=== PATIENT | male | born 1995 | race Caucasian/White ===

== ENCOUNTER 2018-06-05 12:08 | Outpatient (CLI) | payer OTHER ==
--- NOTE | 2018-06-05 15:57 | MRI Report ---
Reason: PAIN IN LEFT SHOULDER Procedure Date: 06/05/2018 Accession Number: [id number] / [id number] Procedure: MRI - Arthrogram Shoulder LT CPT Code: FULL RESULT: EXAM: LEFT SHOULDER MRI ARTHROGRAM WITH CONTRAST EXAM DATE: 06/05/2018 12:58 PM. CLINICAL HISTORY: PAIN IN LEFT SHOULDER. COMPARISON: None. TECHNIQUE: Multiplanar, multisequence T1-weighted and fluid-sensitive sequences of the shoulder after an arthrographic injection of dilute gadolinium, dictated under a separate exam. Other: None. FINDINGS: Rotator cuff: Minimal patchy edema within the distal supraspinatus and infraspinatus. No rotator cuff tear identified. No rotator cuff muscle atrophy or fatty replacement. Long head biceps tendon: Intact demonstrating normal course, signal and morphology. Labrum: Intact. No tear is identified. Bones and articular surfaces: No significant articular cartilage defects are seen. Acromioclavicular joint: Normal appearance. Type II acromion. IMPRESSION: 1. Minimal supraspinatus and infraspinatus tendinosis. [facility] MUSCULOSKELETAL RADIOLOGY SECTION
--- NOTE | 2018-06-05 16:56 | XRAY Report ---
Reason: PAIN IN LEFT SHOULDER Procedure Date: 06/05/2018 Accession Number: [id number] / [id number] Procedure: FL - Arthrogram Needle Placement CPT Code: FULL RESULT: EXAM: LEFT SHOULDER ARTHROGRAPHIC INJECTION WITH FLUOROSCOPIC GUIDANCE EXAM DATE: 06/05/2018 01:14 PM. CLINICAL HISTORY: PAIN IN LEFT SHOULDER. COMPARISON: None. TECHNIQUE: The risks, benefits, and alternatives of the procedure were discussed with the patient. All questions were answered. Written and verbal consent were obtained. The left glenohumeral joint was marked under fluoroscopy and prepped and draped in a sterile manner. Local anesthesia was performed with 1% lidocaine. A 22-gauge needle was then inserted into the glenohumeral joint. 10 mL of a solution containing 25% 1% lidocaine, 25% iodinated contrast, and a 1:200 dilution of gadolinium contrast in sterile saline was then injected. The needle was removed without immediate complication. Other: None. Fluoroscopy Time: 20 seconds. Number of Images: 2. FINDINGS: Bones and joints: No fracture or subluxation. Injection: Fluoroscopic images demonstrate needle placement and contrast in the left glenohumeral joint. No contrast extravasation outside of the glenohumeral joint. IMPRESSION: Successful fluoroscopically guided arthrographic injection of the left shoulder. [facility]
== END 2018-06-05 12:09 | disposition home or self-care (01) ==
LOC: DI 12:08
DX: M75.92 Shoulder lesion, unspecified, left shoulder (principal)
CPT/HCPCS: 23350; 73222; 77002; Q9961

== ENCOUNTER 2019-01-14 10:29 | Emergency (ER) | payer OTHER ==
[2019-01-14 10:40] VITALS: BP 134/68
--- NOTE | 2019-01-14 12:32 | ED Physician Documentation ---
PD HPI NECK PAIN - Stated complaint Stated Complaint: NECK PX/DEL CASTILLO - Chief complaint Chief Complaint: Ext Problem - History obtained from History obtained from: Patient - History of Present Illness Timing - onset: How many months ago (2) Timing - duration: Months (2) Timing - details: Gradual onset Location: Right Quality: Pain Associated symptoms: No: Weakness, Numbness Improves with: Rest Worsened by: Other (Activity and lifting) Contributing factors: No: Trauma Recently seen: Not recently seen - Additional information Additional information: This is a 23-year-old who is in the [employer] and does a lot of heavy lifting presents with complaints of neck pain that is "pretty bad" and is been there for couple months. Is been increasing over the last month to the point that he cannot participate in the physical activities at work even doing push-ups he cannot complete because of the pain. [place] said he just could not wait that long anymore. Is been icing it heating it and doing stretches. He is noted that it is worse with activity. He is been taking 3 Advil up to 2 times a day but not on a consistent basis. 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 Pain is limiting his activity. He complains of tingling a ll the way down the spine but no numbness tingling or pain into the upper or lower extremities. No prior back injury. He does not take any prescription medications. Review of Systems Constitutional: denies: Fever Skin: denies: Rash Musculoskeletal: reports: Neck pain Neurologic: denies: Focal weakness, Numbness PD PAST MEDICAL HISTORY - Present Medications Home Medications: Ambulatory Orders Medication Instructions Recorded Confirmed Cyclobenzaprine [Flexeril] 10 mg PO TID PRN #10 tablet 01/14/19 - Allergies Allergies/Adverse Reactions: Allergies Allergy/AdvReac Type Severity Reaction Status Date / Time Penicillins Allergy Hives Verified 01/14/19 10:40 PD ED PE NORMAL - Vitals Vital signs reviewed: Yes - General General: Alert and oriented X 3, No acute distress, Well developed/nourished - HEENT HEENT: Atraumatic, PERRL - Neck Neck: Supple, no meningeal sign, No adenopathy, Thyroid normal, No bruit, Other (He does have some tenderness with palpation in the trapezius and levator scapula muscles.) - Cardiac Cardiac: RRR, No murmur, Strong equal pulses - Extremities Extremities: No deformity, No tenderness to palpate, Normal ROM s pain, Other (Free range of motion about the shoulders.) - Neuro Neuro: Alert and oriented X 3, 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 Sensation is intact over the deltoid forearm and hand.) - Psych Psych: Normal mood, Normal affect Results - Vitals Vitals: Vital Signs - 24 hr 01/14/19 10:37 Temperature 36.6 C Heart Rate 63 Respiratory 15 Rate Blood Pressure 134/68 H O2 Saturation 97 Oxygen O2 Source Room air PD MEDICAL DECISION MAKING - ED course Complexity details: d/w patient, d/w family ED course: 23-year-old with job involving heavy lifting who is having some right-sided neck pain and tenderness without neurological deficits and no vascular bruits. He is encouraged to use ibuprofen, consider massage. Flexeril at night to help him sleep and he is placed on some restrictions. He should follow-up as scheduled on January 28. Departure - Departure Disposition: Home, Self Care Clinical Impression: Neck pain Condition: Good Instructions: ED Neck Pain No Trauma Follow-Up: PAULO Colladoalexus Amanda [Provider Group] Prescriptions: Cyclobenzaprine [Flexeril] 10 mg PO TID PRN #10 tablet PRN Reason: Spasms Comments: Take ibuprofen 4 tablets every 8 hours [id number] with food. May continue to ice the neck and massage therapy may actually be beneficial at helping to relieve some of the spasm. Flexeril can be used at night but he should not take it during the day and drive or operate machinery. Try to avoid lifting or participating in upper body physical activity for the next 3 to 4 days and [place] Forms: Activity restrictions
== END 2019-01-14 12:39 | disposition home or self-care (01) ==
LOC: ED 10:29
DX: M54.2 Cervicalgia (principal)
CPT/HCPCS: 99282; 99283

== ENCOUNTER 2020-02-01 02:26 | Emergency (ER) | payer OTHER ==
[2020-02-01 03:06] LABS: BASOPHILS # (AUTO) 0.1 10^3/uL (0.0-0.1); BASOPHILS % (AUTO) 0.6 %; EOSINOPHILS # (AUTO) 0.2 10^3/uL (0.0-0.7); EOSINOPHILS % (AUTO) 1.5 %; HGB - HEMOGLOBIN 13.7 g/dL (14.0-18.0); LYMPHOCYTES # (AUTO) 3.3 10^3/uL (1.5-3.5); LYMPHOCYTES % (AUTO) 32.3 %; MEAN CORPUSCULAR HGB CONC 33.2 g/dL (32.0-36.0); MEAN CORPUSCULAR VOLUME 87.5 fL (80.0-94.0); MEAN PLATELET VOLUME 11.2 fL (7.4-11.4); MONOCYTES # (AUTO) 1.1 10^3/uL (0.0-1.0); MONOCYTES % (AUTO) 10.8 %; NEUTROPHILS # (AUTO) 5.6 10^3/uL (1.5-6.6); NEUTROPHILS % (AUTO) 54.2 %; PLT - PLATELET COUNT 231 10^3/uL (130-450); RED BLOOD COUNT 4.72 10^6/uL (4.70-6.10); RED CELL DISTRIBUTION WIDTH 12.2 % (12.0-15.0); WHITE BLOOD COUNT 10.3 x10^3/uL (4.8-10.8)
--- NOTE | 2020-02-01 03:09 | ED Physician Documentation ---
PD HPI ABD PAIN - Stated complaint Stated Complaint: ABD PX - Chief complaint Chief Complaint: Abd Pain - History obtained from History obtained from: Patient - History of Present Illness Timing - onset: Enter time (02:00), Today Timing - details: Abrupt onset Pain level now: 1 Quality: Pain Location: Suprapubic Radiation: Other (no radiation) Improved by: Laying still Worsened by: Moving (movement involving abdominal muscles (such as sitting up)) Associated symptoms: No: Fever, Nausea, Vomiting, Diarrhea, Constipation Similar symptoms before: Has not had sx before Recently seen: Not recently seen - Additional information Additional information: c/o sudden onset abdominal pain, suprapubic region, approximately 2 AM this morning when at home at rest; onset coincided with coughing. He has had intermittent pain since the onset, exacerbated with movement involving abdominal wall muscles such as sitting up. He also notes mild burning dysuria with urination (at end of urination). Review of Systems Constitutional: denies: Fever, Chills, Sweats Cardiac: reports: Reviewed and negative Respiratory: reports: Reviewed and negative GI: reports: Abdominal Pain. denies: Abdominal Swelling, Nausea, Vomiting, Constipation, Diarrhea : reports: Dysuria. denies: Frequency, Hematuria Musculoskeletal: denies: Back pain PD PAST MEDICAL HISTORY - Past Medical History Past Medical History: No - Past Surgical History Past Surgical History: Yes General: Gastric surgery (fundoplication) - Present Medications Home Medications: Ambulatory Orders Medication Instructions Recorded Confirmed Cyclobenzaprine [Flexeril] 10 mg PO TID PRN #10 tablet 01/14/19 - Allergies Allergies/Adverse Reactions: Allergies Allergy/AdvReac Type Severity Reaction Status Date / Time Penicillins Allergy Hives Verified 02/01/20 02:48 - Living Situation Living Arrangement: reports: At home PD ED PE NORMAL - Vitals Vital signs reviewed: Yes - General General: Alert and oriented X 3, No acute distress, Well developed/nourished - Cardiac Cardiac: RRR, No murmur - Respiratory Respiratory: No respiratory distress, Clear bilaterally - Abdomen Abdomen: Normal bowel sounds, Soft, Non tender, Non distended - Back Back: No CVA TTP - Derm Derm: Normal color, Warm and dry Results - Vitals Vitals: Vital Signs - 24 hr 02/01/20 02/01/20 02/01/20 02:45 04:30 05:15 Temperature 36.4 C L 36.1 C L 36.6 C Heart Rate 98 63 60 Respiratory 16 14 16 Rate Blood Pressure 116/65 151/45 H 141/61 H O2 Saturation 98 100 100 Oxygen O2 Source Room air - Labs Labs: Laboratory Tests 02/01/20 02/01/20 02/01/20 03:02 03:02 03:13 WBC 10.3 RBC 4.72 Hgb 13.7 L Hct 41.3 L MCV 87.5 MCH 29.0 MCHC 33.2 RDW 12.2 Plt Count 231 MPV 11.2 Neut # (Auto) 5.6 Lymph # (Auto) 3.3 Hand # (Auto) 1.1 H Eos # (Auto) 0.2 Baso # (Auto) 0.1 Absolute Nucleated RBC 0.00 Nucleated RBC % 0.0 Sodium 138 Potassium 3.8 Chloride 104 Carbon Dioxide 24 Anion Gap 10.0 BUN 14 Creatinine 0.9 Estimated GFR (MDRD) 103 Glucose 97 Calcium 9.3 Total Bilirubin 0.9 AST 31 ALT 60 Alkaline Phosphatase 85 Total Protein 7.0 Albumin 4.5 Globulin 2.5 Albumin/Globulin Ratio 1.8 Lipase 24 Urine Color YELLOW Urine Clarity CLEAR Urine pH 5.0 Ur Specific [place] >=1.030 H Urine Protein NEGATIVE Urine Glucose (UA) NEGATIVE Urine Ketones NEGATIVE Urine Occult Blood NEGATIVE Urine Nitrite NEGATIVE Urine Bilirubin NEGATIVE Urine Urobilinogen 0.2 (NORMAL) Ur Leukocyte Esterase NEGATIVE Ur Microscopic Review NOT INDICATED Urine Culture Comments NOT INDICATED - Rads (name of study) CT A/P w/ IV contrast Radiology: Prelim report reviewed, See rad report PD MEDICAL DECISION MAKING - ED course Complexity details: reviewed results, re-evaluated patient, considered differential, d/w patient ED course: Patient is in NAD during ED stay. CT results d/w Dr. Lynn (economic analysis director surgery); Dr. Lynn recommends d/c and outpatient f/u provided he is not having significant symptoms such as ongoing pain or n/v, and no evidence of obstruction on CT. The intussusception is felt to be an incidental finding. Departure - Departure Disposition: 01 Home, Self Care Clinical Impression: Intussusception Condition: Good Instructions: ED Abdominal Pain Unkn Cause Follow-Up: Cordell Lynn MD [Provider Admit Priv/Credential] - Discharge Date/Time: 02/01/20 05:17
[2020-02-01 03:24] LABS: ALBUMIN 4.5 g/dL (3.2-5.5); ALBUMIN/GLOBULIN RATIO 1.8 (1.0-2.2); BILIRUBIN,TOTAL 0.9 mg/dL (0.2-1.0); CALCIUM 9.3 mg/dL (8.5-10.3); CREATININE 0.9 mg/dL (0.6-1.2)
[2020-02-01 03:25] LABS: BILIRUBIN,URINE NEGATIVE (NEGATIVE); GLUCOSE, URINE (UA) NEGATIVE (NEGATIVE); KETONES,URINE (UA) NEGATIVE (NEGATIVE); LEUKOCYTE ESTERASE, URINE NEGATIVE (NEGATIVE); NITRITE,URINE NEGATIVE (NEGATIVE); OCCULT BLOOD,URINE NEGATIVE (NEGATIVE); PROTEIN,URINE NEGATIVE (NEGATIVE); UROBILINOGEN,URINE 0.2 (NORMAL) E.U./dL (NORMAL)
[2020-02-01 03:26] LABS: CLARITY,URINE CLEAR (CLEAR)
[2020-02-01] MEDS ORDERED: IOVERSOL 320 100 ML VIAL IVP ONE ×2 (03:53→04:18)
[2020-02-01 05:30] VITALS: BP 141/61
--- NOTE | 2020-02-01 07:42 | CT Report ---
PROCEDURE: Abdomen/Pelvis W INDICATIONS: abdominal pain CONTRAST: IV CONTRAST: Optiray 320 ml: 100 PO CONTRAST: *NO PO CONTRAST TECHNIQUE: After the administration of weight appropriate dose of intravenous contrast, 5 mm thick sections acqu ired from the diaphragms to the symphysis. 5 mm thick coronal and sagittal reformats were acquired. For radiation dose reduction, the following was used: automated exposure control, adjustment of mA and/or kV according to patient size. COMPARISON: None. FINDINGS: Image quality: Excellent. ABDOMEN: Lung bases: Lung bases demonstrate minimal bibasilar atelectasis. Heart size is normal. Solid organs: Liver and spleen are normal in size and enhancement. Minimal diffuse hepatic steatosis . Gallbladder is unremarkable. Biliary system is non dilated. Pancreas enhances normally. No adren al nodules. Kidneys demonstrate normal size and enhancement, without hydronephrosis. Peritoneum and bowel: Bowel loops demonstrate normal wall thickness and caliber. There is a short se gment of small bowel intussusception seen on axial image 45, series 3 and coronal image 25, series 6. No surrounding inflammatory changes or adjacent mass lesion/adenopathy. No free fluid or air. Norm al appendix. Nodes and vessels: Numerous scattered mesenteric lymph nodes are more notable for number rather than size and likely reactive in etiology. No retroperitoneal or mesenteric adenopathy by size criteria. Aorta and inferior vena cava are normal in size. Miscellaneous: Small fat-containing umbilical hernia without acute inflammation. PELVIS: Genitourinary: Bladder wall thickness is normal. Miscellaneous: No inguinal hernias or adenopathy. Bones: No suspicious bony lesions. No vertebral body compression fractures. IMPRESSION: 1. Short segment of small bowel intussusception within the left midabdomen without evidence for bowel obstruction, mass lesion, or adenopathy. This may be transient in etiology. Recommend continued clin ical surveillance with follow-up imaging as needed. 2. Mild hepatic steatosis. 3. Scattered mesenteric lymph nodes more notable for number than size, likely reactive in etiology. No significant discrepancy with initial interpretation by overnight radiologist. Reviewed by: Tomy Johnson MD on 02/01/2020 7:41 AM PDT Approved by: Tomy Johnson MD on 02/01/2020 7:41 AM PDT Station ID: [id number]
== END 2020-02-01 05:17 | disposition home or self-care (01) ==
LOC: ED 02:26
DX: K56.1 Intussusception (principal)
CPT/HCPCS: 36415; 74177; 80053; 81003; 83690; 85025; 99284; Q9967; 81001; 87086

== ENCOUNTER 2020-03-16 10:17 | Outpatient (CLI) | payer OTHER ==
--- NOTE | 2020-03-16 11:47 | MRI Report ---
PROCEDURE: Knee RT W/O INDICATIONS: RT KNEE PAIN TECHNIQUE: Noncontrast sagittal PD fast spin echo and T2 fast spin echo with fat saturation, sagittal 3-D spoile d GE with fat saturation; coronal T1 spin echo and PD fast spin echo with fat saturation, and axial P D fast spin echo with fat saturation through the knee. COMPARISON: None. FINDINGS: Image quality: Excellent. Menisci: Increased signal is seen in the body of the medial meniscus without definite extension to a rticular surface, compatible with mild intrasubstance degeneration. The lateral meniscus is intact. T here is no meniscal extrusion. Cruciate ligaments: The anterior and posterior cruciate ligaments appear intact. Medial structures: The medial collateral ligament appears intact. The semimembranosus tendon insert ions appear intact. Visualized portions of the pes anserinus tendons appear normal. Lateral structures: The lateral collateral ligament, long and short heads of the biceps femoris tend on appear intact. The popliteus tendon appears intact. Iliotibial band appears normal. Anterior structures: There is mild tendinosis of the proximal patellar tendon. The distal quadriceps tendon is intact. No femoral trochlear dysplasia or ventral trochlear prominence. No edema in the in frapatellar fat pad. Bones and cartilage: No bone marrow contusion or acute fracture. The cartilage of the medial and la teral femorotibial compartments, as well as the patellofemoral compartment, appears normal in thickne ss. Joint space and soft tissues: There is a physiologic amount of joint fluid. There is a trace medial popliteal cyst. A small amount of nonspecific subcutaneous prepatellar edema is present. IMPRESSION: 1. Mild intrasubstance degeneration in the body of the medial meniscus without a discrete meniscal t ear. The lateral meniscus is intact. 2. Intact cruciate and collateral ligaments. No acute trabecular bone injury. 3. Mild proximal patellar tendinosis. Reviewed by: Archie Gonzalez MD on 03/16/2020 11:45 AM PST Approved by: Archie Gonzalez MD on 03/16/2020 11:45 AM PST Station ID: [id number]
== END 2020-03-16 10:18 | disposition home or self-care (01) ==
LOC: DI 10:17
PROVIDERS: ATTEND Student in an Organized Health Care Education/Training Program
DX: M23.331 Other meniscus derangements, other medial meniscus, right knee (principal); M67.863 Other specified disorders of tendon, right knee

== ENCOUNTER 2020-05-27 14:20 | Outpatient (CLI) | payer OTHER ==
--- NOTE | 2020-05-27 15:55 | MRI Report ---
PROCEDURE: Cervical Spine W/O INDICATIONS: CERVICALGIA TECHNIQUE: Noncontrast sagittal T1 spin echo and T2 fast spin echo, sagittal STIR, foraminal oblique sagittal T2 fast spin echo, and axial gradient echo or T2 fast spin echo through the cervical spine. COMPARISON: None. FINDINGS: Image quality: Excellent. Alignment and Curvature: There is normal bony alignment. Bone Marrow: Marrow demonstrates normal overall signal. Spinal Cord: Visualized spinal cord has normal size and signal. No cerebellar tonsillar herniation. Paraspinous Soft Tissues: No paravertebral masses. Prevertebral soft tissues are normal in thicknes s. C2-C3: Normal in appearance. C3-C4: Normal in appearance. C4-C5: Normal in appearance. C5-C6: Normal in appearance. C6-C7: Normal in appearance. C7-T1: Normal in appearance. IMPRESSION: Unremarkable examination. No cord signal abnormality, spinal canal stenosis, neural foraminal stenosi s, significant degenerative changes, or other finding to explain neck pain. Reviewed by: Jarvis Lujan MD on 05/27/2020 3:54 PM PST Approved by: Jarvis Lujan MD on 05/27/2020 3:54 PM PST Station ID: [id number]
== END 2020-05-27 14:21 | disposition home or self-care (01) ==
LOC: DI 14:20
PROVIDERS: ATTEND Student in an Organized Health Care Education/Training Program
DX: M54.2 Cervicalgia (principal)

== ENCOUNTER 2020-08-11 09:37 | Outpatient (CLI) | payer OTHER ==
--- NOTE | 2020-08-11 10:43 | SLEEP CARE CONSULTATION ---
Information from patient questionnaire entered by Ana Costa. I have reviewed and concur with the information entered by Ana Costa. This document represents the service I personally performed and the decisions made by me, Vanessa Cruz ARNP. History of Present Illness Service Date and Time: 08/11/2020 0937 Reason for Visit: New patient Chief Complaint: reports: Unrefreshed sleep, Snoring, Excessive daytime sleepiness, Observed pauses in breathing, Other (sleep walking, kicking/swinging arms) Date of Onset: 2016 Usual bedtime: 11:30 PM Time it takes to fall asleep: 30 min - 1 hr Snores at night: Yes Observed to quit breathing while asleep: Yes Sleeps alone due to snoring: No Number of times waking at night: 1-3 times a night Reasons for waking at night: reports: Gasping for air, Other (unknown reason) Toss, Turn, or Twitch while sleeping: Yes Recalls having dreams: Yes Usually gets out of bed at: 5:30 AM Feels refreshed in the morning: No Morning headache: Yes (Varies depending how bad it is; 5 days a week and they last all day) Sleepy or fatigued during the day: Yes Ever fallen asleep while driving: Yes (drowsy driving; no accidents) Takes day naps: No Dreams during day naps: Yes Prior sleep studies: No Additional HPI information: I had the pleasure of seeing JACQUELIN PARKINSON today regarding the possibility of him having a sleep disorder. His current complaints are observed pauses in breathing and unrefreshed sleep. He will sometimes wake up in kitchen or kicking/swinging his arms. He has a new baby in the home and his sometimes feeds the baby in the bed at night. He is concerned that he might hit them in his sleep. His has told him that he snores but can still sleep in same room and has noted pauses in breathing lasting up to 6 seconds. He states it varies on how he feels in the morning but he can sleep for 8 hours and not wake up feeling rested. 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 Patient is and lives in [place]. Have you smoked in the past 12 months: No (may have had 1-2 cigarette in last year) Cigarettes per day (20/pack): 4 Years of smokin Smoking Pack Years: 1.4 Alcohol use: No Caffeine use: Yes Caffeine amount and frequency: 1-2 glasses, 1 in the morning, 1 for dinner Family History Family history of sleep disordered breathing: Yes Family Hx Sleep Apnea: Father: Snoring Allergies and Home Medications Drug allergies reviewed: Yes (penicillins) Home medication list reviewed: Yes Allergy and home medication list: Ibuprofen 600 mg daily, prn for headaches Review of Systems Gastrointestinal: reports: diarrhea Neurological: reports: headaches Ear/Nose/Throat: reports: tonsillectomy, wisdom teeth removed Endocrine: reports: sluggishness (tired) Musculoskeletal: reports: joint pain (stiffness), neck pain Physical Exam Blood Pressure: 124/77 Cuff size: wrist Heart Rate: 72 O2 Saturation: 99 Height: 5 ft 7 in Weight: 193 lb Body Mass Index: 30.2 BMI Classification: Obese Nostrils: patent to airflow Mouth and throat: narrow oropharynx Soft palate: long Hard palate: arched Uvula visualization: 50% Mallampati Class II Tongue: enlarged in size with teeth andersen on lateral edges Tonsils: absent bilaterally Chin and jaw: normal size and position Neck: normal w/o lymphadenopathy or thyromegaly Heart: regular rate and rhythm Lungs: clear bilaterally Impression and Plan 1. Suspected Obstructive Sleep Apnea-Hypopnea Syndrome, as suggested by a history of loud and irregular snoring, observed cessation of breath while asleep, gasping or choking in sleep, morning headache, unrefreshed sleep, cognitive impairment, and excessive daytime sleepiness. Narrow oropharynx and obesity are common predisposing factors for obstructive sleep apnea-hypopnea syndrome. I recommend proceeding to polysomnography to confirm the diagnosis and to assess severity. If the patient has significant sleep disordered breathing, a manual CPAP titration study will also be performed to find the optimal treatment pressure. I informed the patient of what the sleep studies involve and after some discussion, obtained agreement to proceed. The pathophysiology of obstruct alejandro sleep apnea-hypopnea syndrome was discussed with the patient and health risks of cardiovascular and cerebrovascular disease if not treated. 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 Patient agreed to plan. * Schedule polysomnography +- manual CPAP titration study and return in 1-2 weeks after the study to discuss result and initiate therapy. * Avoid long distance driving or driving when feeling sleepy. * Avoid alcohol, sedative and muscle relaxant around bedtime. * Attempt to lose weight. * Review instructions provided by trained office staff on how to prepare for the sleep study. * Return for follow-up after sleep study completed. Counseling Topics: Weight loss health impact Visit Type: In Office Time Spent with Patient (minutes): 30 Provider Statement: I spent 100% of the Face to Face Visit with the patient with greater than 50% spent counseling the patient and coordination of care.
[2020-08-11 10:44] VITALS: BP 124/77
== END 2020-08-11 09:38 | disposition home or self-care (01) ==
LOC: SC 09:37
PROVIDERS: ATTEND Nurse Practitioner Family
DX: G47.10 Hypersomnia, unspecified (principal); R06.81 Apnea, not elsewhere classified; R06.83 Snoring; R51.9 Headache, unspecified; R41.89 Other symptoms and signs involving cognitive functions and awareness; G47.8 Other sleep disorders; E66.9 Obesity, unspecified; Z68.30 Body mass index [BMI] 30.0-30.9, adult; F17.210 Nicotine dependence, cigarettes, uncomplicated
CPT/HCPCS: 99203; 99212

== ENCOUNTER 2020-08-18 15:00 | Outpatient (CLI) | payer OTHER | END 2020-08-18 15:01 | disposition home or self-care (01) | LOC: SC 15:00 | PROVIDERS: ATTEND Nurse Practitioner Family | DX: G47.33 Obstructive sleep apnea (adult) (pediatric) (principal); R09.02 Hypoxemia | CPT/HCPCS: 95806 ==

== ENCOUNTER 2020-08-26 13:13 | Outpatient (CLI) | payer OTHER ==
--- NOTE | 2020-08-26 14:00 | SLEEP CARE CONSULTATION ---
Information from patient questionnaire entered by Eda Wu. I have reviewed and concur with the information entered by Eda Wu. This document represents the service I personally performed and the decisions made by , Vanessa Cruz ARNP. History of Present Illness Service Date and Time: 08/26/2020 1313 Initial [place] Sleepiness Scale score: 17 (in 2020) Current [place] Sleepiness Scale score: 17 Additional HPI information: JACQUELIN PARKINSON returns for follow up and results of the recently performed home sleep study. I explained the pathophysiology behind obstructive sleep apnea. We then spent quite a bit of time discussing different treatment options. For mild obstructive sleep apnea, surgery and oral appliance are alternatives to nasal CPAP therapy but in moderate or severe cases, nasal CPAP is the most effective and reliable treatment. Because apnea is primarily in supine position, then positional management therapy could be effective. Methods discussed such as positioning with pillows, using a T-shirt with tennis balls in the back, and shown commercial products that have a pillow format on back to prevent supine sleep. I reviewed the impact of weight changes on sleep apnea and strongly recommended losing weight. After some discussion, the patient opted to go with the nasal CPAP therapy. Nasal autoCPAP set at 4-15 cmH20 will be ordered with rationale explained. A manual titration study will be ordered if unable to find optimal pressure with office adjustments. I explained how CPAP machine works with sample devices Respironics Dreamstation and [employer] [id number] and what to expect when using the machine. Using CPAP every night in order to get used to it was emphasized. Patient advised to put CPAP mask on before getting into bed so as not to fall asleep without CPAP. To assist acclimation to CPAP use, it could also be used for a short time during day while reading or watching TV. The patient was instructed to call the CPAP supplier to discuss any mechanical problem that may occur. If the mask given is uncomfortable or is difficult to keep on through the night even with adjustment, contact the CPAP supplier as many will replace with another mask style if notified before 30 days. If snoring or perceives is not getting enough air or too much air from the machine, notify this office. AAS patient education PAP tips reviewed and given to patient. Patient does not drink alcohol. Patient was cautioned about risks of drowsy driving until sleepiness symptoms resolve. Sleep Study - Results Type of Sleep Study: Home sleep study Prior sleep studies: No Polysomnography/Home Sleep Study results: Physician Impression: The quality of the study is fair due to partial loss of pulse oximetry signal. The length of the study is adequate (> 240 minutes). Please also see the tabulated and graphic data. 1. Obstructive Sleep Apnea-Hypopnea (ICD-10 G47.33), mild, with an AHI of 5.1/hr and waldo SaO2 of 85%. During the study, the patient had 8 apneas (8 obstructive, 0 central, 0 mixed) and 9 hypopneas. The longest episode lasted 59.5 seconds. The patient slept almost exclusively in supine position (supine AHI was 5.7 and non-supine, 1.96). 2. Hypoxemia (ICD-10 R09.02), mild, with the lowest oxygen saturation of 85 % and 12.3 minutes with SaO2 under 90%. Baseline oxygen saturation was normal (Average oxygen saturation was 95%). Allergies and Home Medications Home medication list reviewed: Yes (no changes) Review of Systems Review of systems same as previous: Yes (no changes) Physical Exam Heart Rate: 77 O2 Saturation: 98 Height: 5 ft 7 in Weight: 201 lb Body Mass Index: 31.4 BMI Classification: Obese Impression and Plan 1. Obstructive Sleep Apnea-Hypopnea Syndrome, mild, with lowest oxygen saturation of 85%. Obviously this is the cause of the patients symptoms of unrefreshed sleep, and excessive daytime sleepiness. Positive pressure therapy could benefit anxiety. After extensive discussion, the patient decided he would like to be started on nasal autoCPAP therapy with pressure set at 4-15 cmH2O. A manual titration study will be completed if unable to find optimal treatment pressure with office adjustments. Compliance guidelines also reviewed. A copy of compliance guidelines will be given for reference at check out. Because the apnea is more severe supine, I instructed to avoid sleeping supine using pillow positioning until able to start CPAP use. He also has some concerns about how active he is when sleeping. He has been known to flail his arms and legs. He is concerned about hurting his and new baby who often sleeps with them. I will discuss his case with my certified ophthalmic medical technician to see if we should order an in lab PSG for further evaluation. He voiced understanding and agreement with plan. * Nasal auto CPAP therapy, pressure at 4-14 cm H2O. * Attempt to lose weight. * Avoid alcohol consumption near bedtime. * Avoid supine sleep until using CPAP. * The patient is again cautioned about driving until sleepiness completely resolves. * Return one month after CPAP obtained. I will assess response to therapy and compliance at that time. Counseling Topics: Weight loss health impact Visit Type: In Office Time Spent with Patient (minutes): 22 Provider Statement: I spent 100% of the Face to Face Visit with the patient with greater than 50% spent counseling the patient and coordination of care.
== END 2020-08-26 13:14 | disposition home or self-care (01) ==
LOC: SC 13:13
PROVIDERS: ATTEND Nurse Practitioner Family
DX: G47.33 Obstructive sleep apnea (adult) (pediatric) (principal); E66.9 Obesity, unspecified; Z68.31 Body mass index [BMI] 31.0-31.9, adult
CPT/HCPCS: 99212; 99213

== ENCOUNTER 2020-10-19 15:55 | Emergency (ER) | payer OTHER ==
--- NOTE | 2020-10-19 18:23 | ED Physician Documentation ---
PD HPI LOWER EXT INJURY - Stated complaint Stated Complaint: RIGHT KNEE PX - Chief complaint Chief Complaint: Ext Problem - History obtained from History obtained from: Patient - Additional information Additional information: Longstanding right knee pain. He had an MRI and an x-ray that were negative per him last year. No specific injury. He has pain on the lateral part of the right knee especially with certain motions. Its been worse over the last month or 2. Review of Systems Constitutional: reports: Reviewed and negative Eyes: reports: Reviewed and negative Ears: reports: Reviewed and negative Nose: reports: Reviewed and negative Throat: reports: Reviewed and negative PD PAST MEDICAL HISTORY - Past Medical History Respiratory: Sleep apnea, CPAP use GI: GERD - Past Surgical History Past Surgical History: Yes General: Gastric surgery - Present Medications Home Medications: Ambulatory Orders Medication Instructions Recorded Confirmed Ibuprofen [Motrin] 600 mg PO Q6H PRN 10/19/20 10/19/20 Meloxicam [Mobic] 7.5 mg PO BID PRN #20 tablet 10/19/20 - Allergies Allergies/Adverse Reactions: Allergies Allergy/AdvReac Type Severity Reaction Status Date / Time Penicillins Allergy Hives Verified 10/19/20 16:19 - Social History Does the pt smoke?: No Smoking Status: Never smoker Does the pt drink ETOH?: No Does the pt have substance abuse?: No - Immunizations Immunizations are current?: Yes - POLST Patient has POLST: No PD ED PE NORMAL - Vitals Vital signs reviewed: Yes - General General: Alert and oriented X 3, No acute distress - Extremities Extremities: Other (He is tender over the right iliotibial band. There is a small effusion of the right knee. There is no specific tenderness of the right knee. Ligamentous testing and grind testing is normal.) - Neuro Neuro: Alert and oriented X 3, Normal speech Results - Vitals Vitals: Vital Signs - 24 hr 10/19/20 16:15 Temperature 36.5 C Heart Rate 62 Respiratory 16 Rate Blood Pressure 156/62 H O2 Saturation 98 Oxygen O2 Source Room air PD MEDICAL DECISION MAKING - ED course ED course: Most consistent with IT band syndrome but a little atypical given the small effusion of the knee. That said he says that negative MRI with previous sxs previously. Departure - Departure Disposition: 01 Home, Self Care Clinical Impression: Iliotibial band syndrome of right side Condition: Good Record reviewed to determine appropriate education?: Yes Instructions: Iliotibial Band Stretch, IT Band Syndrome About Prescriptions: Meloxicam [Mobic] 7.5 mg PO BID PRN #20 tablet PRN Reason: Pain Comments: Knee x-ray shows a small effusion, otherwise normal. If as discussed it seems like the bulk of your symptoms are likely due to iliotibial band syndrome. Do the stretches as shown several times a day. Follow-up with your flight physician for consideration of physical therapy, since you do have some fluid on the knee joint and that is atypical for iliotibial band trim syndrome they may consider another MRI. Forms: Activity restrictions
--- NOTE | 2020-10-19 18:26 | XRAY Report ---
PROCEDURE: Knee 4 View RT INDICATIONS: knee pain TECHNIQUE: 4 views of the right knee(s) were acquired. COMPARISON: None. FINDINGS: Bones: No fractures or dislocations. No suspicious bony lesions. Soft tissues: Small knee joint effusion. No suspicious soft tissue calcifications. IMPRESSION: 1. Small knee joint effusion. 2. No acute fracture. No osseous lesion. If symptoms and/or clinical suspicion for pathology continue , further assessment with repeat plain films, or advanced imaging (e.g., CT, MRI, or bone scan) is re commended for further assessment. Reviewed by: Betsy Fernandez MD on 10/19/2020 6:24 PM PDT Approved by: Betsy Fernandez MD on 10/19/2020 6:24 PM PDT Station ID: [id number]
[2020-10-19 19:03] VITALS: BP 126/69
== END 2020-10-19 19:09 | disposition home or self-care (01) ==
LOC: ED 15:55
DX: M76.31 Iliotibial band syndrome, right leg (principal)
CPT/HCPCS: 99283

== ENCOUNTER 2020-10-30 10:54 | Outpatient (CLI) | payer OTHER ==
--- NOTE | 2020-10-30 11:41 | SLEEP CARE CONSULTATION ---
Information from patient questionnaire entered by Eda Wu. I have reviewed and concur with the information entered by Eda Wu. This document represents the service I personally performed and the decisions made by , Vanessa Cruz ARNP. History of Present Illness Service Date and Time: 10/30/2020 1054 Previous diagnosis: Mild, Obstructive Sleep Apnea-Hypopnea Syndrome AHI: 5.1 (in 2020) Reason for follow up: first compliance Equipment type: CPAP Equipment obtained from: Other ([facility]; got initial supplies) Mask style: Full face Mask brand: Respironics (Dreamwear) Backup mask available: No (will keep old mask when replaced) Last cushion change: 1 month Prior sleep studies: Yes Year and Where: 2020 - [facility] Type of Sleep Study: Home sleep study HPI additional information: JACQUELIN PARKINSON was diagnosed to have mild, AHI 5.1, obstructive sleep apnea- hypopnea syndrome and returned today for CPAP therapy first compliance follow-up . CPAP Compliance Data - Data Reviewed with Patient Average duration of nightly device use: 4 hr 25 min Compliance rate %: 73 Current pressure setting (cmH2O): 4-15 (median 4.9, avg 7.2, max 8.3) Humidity setting: auto Heated hose setting: auto Average residual AHI: 1.5 Subjective Missed days of use due to: reports: mask issues Patient concerns: reports: mask discomfort, mask leak noise, nasal congestion, dry mouth, nose, throat, epistaxis, other (easy to remove/rip off during sleep). denies: aerophagia, air blowing in eyes, condensation in mask/hose Observed to snore while using device: No Current pressure setting perceived as: too low (frequently feels like he needs to breathe in harder, air hunger) On therapy, patient: reports: sleeping better, other (not waking up as much in middle of night). denies: drowsiness while driving Initial [place] Sleepiness Scale score: 17 (in 2020) Current [place] Sleepiness Scale score: 16 Allergies and Home Medications Home medication list reviewed: Yes (Mobic for right knee pain) Review of Systems Review of systems same as previous: Yes (no changes) Physical Exam Heart Rate: 68 O2 Saturation: 98 Height: 5 ft 7 in Weight: 197 lb (with boots) Body Mass Index: 30.8 BMI Classification: Obese Impression and Plan 1. Obstructive Sleep Apnea-Hypopnea Syndrome, mild, with good treatment compliance and good apnea control. On CPAP therapy, the patient feels he is getting some more time sleeping without interruption but has not noticed an increase in his sleep quality or rested feeling overall. The mass seems to come off easily and he was asking advice about being able to keep it on or if he should try a different mask. I suggested talking to his DME supplier to see if they have any recommendations. He could use a little tape to discourage him being able to take it off during the night over the magnetic part of the mask. He voiced understanding. He also has been feeling like he needs more air that the pressure is too low. He feels this might be causing him to swipe at the mask causing it to be knocked off work on unhooked. The patients pressure will be changed to autoCPAP 8-10 cmH20 to reflect pressure being used and reduce air hunger. Patient advised to contact me if pressure change is uncomfortable so that it can be adjusted. Goals for apnea control discussed. He feels that he is not as active but he still continues to strike out and kick when asleep. I advised him to take measures for safety including removing any sharp objects and possibly even using in a different bed so he does not kick or strike his or baby. He voiced understanding and agreement with this plan of care. Patient's apnea severity and rationale for treatment to reduce apnea, improve sleep quality and reduce cardiovascular and cerebrovascular events was reviewed. I also reviewed the benefit of consistent device use of CPAP for anxiety. * Change auto CPAP pressure to 8-10 cmH2O * Notify me if snoring with mask or feeling that the pressure is too much or too little * Attempt to lose weight * Call this office if any problems using CPAP * Return for follow up in 1-2 months, or sooner if concerns arise =9 Counseling Topics: Spare mask, Weight loss health impact Visit Type: In Office Time Spent with Patient (minutes): 25 Provider Statement: I spent 100% of the Face to Face Visit with the patient with greater than 50% spent counseling the patient and coordination of care.
== END 2020-10-30 10:55 | disposition home or self-care (01) ==
LOC: SC 10:54
PROVIDERS: ATTEND Nurse Practitioner Family
DX: G47.33 Obstructive sleep apnea (adult) (pediatric) (principal); E66.9 Obesity, unspecified; Z68.30 Body mass index [BMI] 30.0-30.9, adult
CPT/HCPCS: 99212; 99213

== ENCOUNTER 2020-12-04 12:54 | Outpatient (CLI) | payer OTHER ==
--- NOTE | 2020-12-04 16:57 | XRAY Report ---
PROCEDURE: Knee 4 View RT INDICATIONS: KNEE PAIN, RIGHT TECHNIQUE: 4 views of the right knee(s) were acquired. COMPARISON: 4 views of the right knee dated 10/19/2020 FINDINGS: Bones: No fractures or dislocations. No suspicious bony lesions. Soft tissues: No joint effusion. No suspicious soft tissue calcifications. IMPRESSION: Small right knee joint effusion; otherwise normal appearance of the right knee. If pain persist with conservative management, consider CT or MRI. Reviewed by: WILBERTO Pruett on 12/04/2020 4:56 PM PDT Approved by: Archie Gonzalez MD on 12/04/2020 4:56 PM PDT Station ID: [id number]
== END 2020-12-04 12:55 | disposition home or self-care (01) ==
LOC: DI.N 12:54
PROVIDERS: ATTEND Physician Assistant
DX: M25.461 Effusion, right knee (principal); M25.561 Pain in right knee

== ENCOUNTER 2020-12-17 12:49 | Outpatient (CLI) | payer OTHER ==
--- NOTE | 2020-12-17 13:27 | SLEEP CARE CONSULTATION ---
Information from patient questionnaire entered by Eda Wu. I have reviewed and concur with the information entered by Eda Wu. This document represents the service I personally performed and the decisions made by , Vanessa Cruz ARNP. History of Present Illness Service Date and Time: 12/17/2020 1249 Previous diagnosis: Mild, Obstructive Sleep Apnea-Hypopnea Syndrome AHI: 5.1 (in 2020) Reason for follow up: other (6 week with pressure change) Equipment type: CPAP Equipment obtained from: Other ([facility]; getting supplies as needed) Mask style: Full face Mask brand: Resmed Backup mask available: Yes (old masks) Last cushion change: 2 weeks ago Prior sleep studies: Yes Year and Where: 2020 - [facility] Type of Sleep Study: Home sleep study HPI additional information: JACQUELIN PARKINSON was diagnosed to have mild, AHI 5.1, obstructive sleep apnea- hypopnea syndrome and returned today for CPAP therapy 6 week with pressure change follow-up. CPAP Compliance Data - Data Reviewed with Patient Average duration of nightly device use: 3 hr 22 min Compliance rate %: 44 (45 days) Current pressure setting (cmH2O): 8-10 Humidity setting: auto Heated hose setting: auto Average residual AHI: 1.7 Central apnea: 0.6 Obstructive apnea: 0.6 Subjective Missed days of use due to: reports: mask issues (takes mask off when asleep) Patient concerns: reports: mask discomfort, air blowing in eyes, mask leak noise, dry mouth, nose, throat (dry mouth and throat), other (has black oily substance on face and in mouth/nose). denies: aerophagia, condensation in mask/hose, nasal congestion, epistaxis Observed to snore while using device: No Current pressure setting perceived as: too low (maybe only when on side) On therapy, patient: reports: sleeping better, awakening more refreshed, being more awake and alert during the day, more rested overall. denies: drowsiness while driving Initial [place] Sleepiness Scale score: 17 (in 2020) Current [place] Sleepiness Scale score: 15 Allergies and Home Medications Home medication list reviewed: Yes (no changes) Review of Systems Review of systems same as previous: Yes (no changes) Physical Exam Heart Rate: 67 O2 Saturation: 98 Height: 5 ft 7 in Weight: 200 lb Body Mass Index: 31.3 BMI Classification: Obese Impression and Plan 1. Obstructive Sleep Apnea-Hypopnea Syndrome, mild, with poor treatment compliance and good apnea control. On CPAP therapy, the patient has better sleep quality and is more rested overall. Patient states he is using a full face mask with headgear that goes along the sides of his face. He feels sometimes this seems to cut down the air when he is on his side. He is otherwise happy with current pressure setting. I advised him to try a CPAP pillow which may help when he is on his side to reduce pressure on mask. Patient would like to try a different mask when he is eligible. I will write for a mask refitting. He also woke up recently with some greyish-black oily substance in his mouth and on the mask/tubing ends. He does not know where it came from. It did not reoccur the next time he used it but he has noted some black oily substance still on the inside of the tubing ends. I will have the DME service his device to see if there is any malfunction. He was advised to discontinue CPAP if he continues to find this oily substance in his device or mouth. He voiced understanding and agreement. He still wakes up to find the mask off of his face which is affecting his compliance. I advised him to replace mask whenever he finds the mask off. He voiced understanding. Compliance guidelines reviewed for insurance coverage. A handout will be given at check out. Patient was counseled on the difference between meeting compliance and optimal use of CPAP. Optimal use of CPAP is use of CPAP with all sleep to obtain maximum benefit of treatment. Patient is encouraged to use CPAP with all sleep. Patient's apnea severity and rationale for treatment to reduce apnea, improve sleep quality and reduce cardiovascular and cerebrovascular events was reviewed. I also reviewed the benefit of consistent device use of CPAP for anxiety. * Continue auto CPAP pressure at 8-10 cmH2O * Mask refitting * Service machine due to oily substance noted in mask and tubing * Notify me if snoring with mask or feeling that the pressure is too much or too little * Attempt to lose weight * Call this office if any problems using CPAP * Return for follow up in 3 months, or sooner if concerns arise Counseling Topics: Weight loss health impact Visit Type: In Office Time Spent with Patient (minutes): 27 Provider Statement: I spent 100% of the Face to Face Visit with the patient with greater than 50% spent counseling the patient and coordination of care.
== END 2020-12-17 12:50 | disposition home or self-care (01) ==
LOC: SC 12:49
PROVIDERS: ATTEND Nurse Practitioner Family
DX: G47.33 Obstructive sleep apnea (adult) (pediatric) (principal); E66.9 Obesity, unspecified; Z68.31 Body mass index [BMI] 31.0-31.9, adult
CPT/HCPCS: 99212; 99213

== ENCOUNTER 2021-04-01 14:04 | Outpatient (CLI) | payer OTHER ==
[2021-04-01 14:36] VITALS: BP 145/99
--- NOTE | 2021-04-01 14:36 | SLEEP CARE CONSULTATION ---
Information from patient questionnaire entered by Salo Shine MA. I have reviewed and concur with the information entered by Salo Shine MA. This document represents the service I personally performed and the decisions made by , Vanessa Cruz ARNP. History of Present Illness Service Date and Time: 04/01/2021 1404 Previous diagnosis: Mild, Obstructive Sleep Apnea-Hypopnea Syndrome AHI: 5.1 (in 2020) Reason for follow up: three month Equipment type: CPAP Equipment obtained from: Other ([facility]; getting supplies) Mask style: Full face Backup mask available: No Prior sleep studies: Yes Year and Where: 2020 - [facility] Type of Sleep Study: Home sleep study HPI additional information: JACQUELIN PARKINSON was diagnosed to have mild, AHI 5.1, obstructive sleep apnea- hypopnea syndrome and returned today for CPAP therapy three month follow-up. Sleep Study - Results Type of Sleep Study: Home sleep study Prior sleep studies: Yes Year and Where: 2020 - [facility] CPAP Compliance Data - Data Reviewed with Patient Average duration of nightly device use: 3 HOURS 9 MINUTES Compliance rate %: 44 Current pressure setting (cmH2O): 8-10 Average residual AHI: 1.5 Central apnea: .5 Obstructive apnea: .5 Hypopnea: .2 Subjective Missed days of use due to: reports: other (no sleeping) Patient concerns: reports: mask discomfort (pushing on upper lip), mask leak noise. denies: aerophagia, air blowing in eyes, condensation in mask/hose, nasal congestion, dry mouth, nose, throat, epistaxis, other Observed to snore while using device: No Current pressure setting perceived as: comfortable On therapy, patient: reports: sleeping better (when able to sleep more), awakening more refreshed, being more awake and alert during the day, more rested overall. denies: drowsiness while driving Initial [place] Sleepiness Scale score: 17 (in 2020) Current [place] Sleepiness Scale score: 17 Allergies and Home Medications Home medication list reviewed: Yes (no changes) Review of Systems Review of systems same as previous: Yes (no changes) Physical Exam Blood Pressure: 145/99 Cuff size: wrist Heart Rate: 83 O2 Saturation: 99 Height: 5 ft 7 in Weight: 185 lb Body Mass Index: 29.0 BMI Classification: Overweight Impression and Plan 1. Obstructive Sleep Apnea-Hypopnea Syndrome, mild, with poor treatment compliance and good apnea control. On CPAP therapy, the patient has better sleep quality and is more rested overall. He has not been able to get more supplies or change the mask. He is using a full face hybrid mask cushion that sits under his nose. It pushes up and can make his nose sore. He was advised to call his DME again to obtain new supplies and he can try a new mask style like we talked about at his last visit. He voiced understanding. He states the discharge from his machine has resolved after cleaning the device as recommended by his DME supplier. He states his compliance is lower due to his schedule being changed 5 times from nights to graves, etc. He is now back on day shift and hoping to stay that way for a while so he can increase his time using the CPAP. Compliance guidelines reviewed for insurance coverage. Patient was counseled on the difference between meeting compliance and optimal use of CPAP. Optimal use of CPAP is use of CPAP with all sleep to obtain maximum benefit of treatment. Patient is encouraged to use CPAP with all sleep. Patient's apnea severity and rationale for treatment to reduce apnea, improve sleep quality and reduce cardiovascular and cerebrovascular events was reviewed. I also reviewed the benefit of consistent device use of CPAP for anxiety. Patient was encouraged to lose weight for their overall health and to reduce apneas. * Continue auto CPAP pressure at 8-10 cmH2O * Notify me if snoring with mask or feeling that the pressure is too much or too little * Attempt to lose weight * Call this office if any problems using CPAP * Return for follow up in 6 months, or sooner if concerns arise Counseling Topics: Spare mask, Weight loss health impact Visit Type: In Office Time Spent with Patient (minutes): 23 Provider Statement: I spent 100% of the Face to Face Visit with the patient with greater than 50% spent counseling the patient and coordination of care.
== END 2021-04-01 14:05 | disposition home or self-care (01) ==
LOC: SC 14:04
PROVIDERS: ATTEND Nurse Practitioner Family
DX: G47.33 Obstructive sleep apnea (adult) (pediatric) (principal)
CPT/HCPCS: 99212; 99213